=== PATIENT | male | born 1945 | race African-American/Black ===

== ENCOUNTER 2016-07-04 09:05 | Outpatient (CLI) | payer MEDICARE, MEDICAID ==
[2016-07-04 11:18] LABS: Anion Gap 15 mmol/L (10-20); Glucose 105 mg/dL (83-110)
[2016-07-04 11:34] LABS: BUN (Urea Nitrogen) 15 mg/dL (8.4-25.7); Calc. Creatinine Clearance 0 mL/min (70-130); Calcium 9.6 mg/dL (7.8-10.44); Carbon Dioxide 29 mmol/L (23-31); Chloride 101 mmol/L (98-107); Estimated GFR-MDRD 87; Potassium 3.3 mmol/L (3.5-5.1); Sodium 142 mmol/L (136-145)
[2016-07-04 11:59] LABS: Bilirubin Negative (Negative); Blood, Urine Trace (Negative); Clarity Clear (Clear); Glucose, Urine (Dipstick) Negative (Negative); Leukocyte Small (Negative); Nitrite Negative (Negative); Protein, Urine (Dipstick) 30 mg/dL (Neg-Trace); pH, Urine 5.5 (5.0-9.0)
== END 2016-07-04 09:06 ==
LOC: MADLAB 09:05
PROVIDERS: ATTEND Urology
DX: N35.8 Other urethral stricture (principal)
CPT/HCPCS: 36415; 80048; 81001; 87077; 87086; 87186

== ENCOUNTER 2016-07-29 11:45 | Outpatient (CLI) | payer MEDICARE, MEDICAID ==
[2016-07-29 12:38] LABS: Bilirubin Negative (Negative); Blood, Urine Small (Negative); Clarity Clear (Clear); Glucose, Urine (Dipstick) 500 mg/dL (Negative); Leukocyte Small (Negative); Nitrite Negative (Negative); Protein, Urine (Dipstick) Trace mg/dL (Neg-Trace); Specific Gravity, Urine 1.015 (1.005-1.030); Urobilinogen 0.2 mg/dL (0.2-1.0); pH, Urine 5.5 (5.0-9.0)
[2016-07-29 12:45] LABS: Hemoglobin A1c 12.1 % (4.0-6.0)
[2016-07-29 12:46] LABS: Bacteria/HPF Rare-Few HPF (None Seen); RBC/HPF 0-3 HPF (0-3); Squamous Epithelial 0-3 HPF (0-3)
[2016-07-29 12:47] LABS: Other Microscopic Description C&S SET UP
== END 2016-07-29 11:46 | disposition home or self-care (01) ==
LOC: MADLAB 11:45
PROVIDERS: ATTEND Urology
DX: N35.9 Urethral stricture, unspecified (principal); E13.9 Other specified diabetes mellitus without complications; N47.6 Balanoposthitis
CPT/HCPCS: 36415; 81001; 83036; 87086

== ENCOUNTER 2016-08-08 08:07 | Outpatient (CLI) | payer MEDICARE, MEDICAID ==
[2016-08-08 09:20] LABS: Bilirubin Negative (Negative); Blood, Urine Small (Negative); Clarity Clear (Clear); Glucose, Urine (Dipstick) 100 mg/dL (Negative); Leukocyte Small (Negative); Nitrite Negative (Negative); Protein, Urine (Dipstick) 30 mg/dL (Neg-Trace); Urobilinogen 0.2 mg/dL (0.2-1.0)
[2016-08-08 09:27] LABS: Bacteria/HPF Rare-Few HPF (None Seen); Other Microscopic Description C&S SET UP; Squamous Epithelial 0-3 HPF (0-3)
== END 2016-08-08 08:08 ==
LOC: MADLAB 08:07
PROVIDERS: ATTEND Urology
DX: N35.9 Urethral stricture, unspecified (principal); R35.0 Frequency of micturition
CPT/HCPCS: 36415; 81001; 87086

== ENCOUNTER 2016-08-30 15:54 | Outpatient (CLI) | payer MEDICARE, MEDICAID ==
[2016-08-30 16:16] LABS: Hemoglobin A1c 12.8 % (4.0-6.0)
[2016-08-30 16:35] LABS: ALT (SGPT) 13 U/L (0-55); AST (SGOT) 11 U/L (5-34); Albumin 3.8 g/dL (3.4-4.8); Alkaline Phosphatase 143 U/L (40-150); Anion Gap 16 mmol/L (10-20); BUN (Urea Nitrogen) 17 mg/dL (8.4-25.7); Bilirubin, Total 0.5 mg/dL (0.2-1.2); Calc. Creatinine Clearance 0 mL/min (70-130); Calcium 9.5 mg/dL (7.8-10.44); Carbon Dioxide 26 mmol/L (23-31); Chloride 98 mmol/L (98-107); Estimated GFR-MDRD 61; Globulin 3.8 g/dL (2.4-3.5); Glucose 400 mg/dL (83-110); Potassium 3.9 mmol/L (3.5-5.1); Protein, Total 7.6 g/dL (5.8-8.1); Sodium 136 mmol/L (136-145)
== END 2016-08-30 15:55 | disposition home or self-care (01) ==
LOC: MADLAB 15:54
PROVIDERS: ATTEND Family Medicine
DX: I10 Essential (primary) hypertension (principal)
CPT/HCPCS: 36415; 80053; 83036

== ENCOUNTER 2016-09-19 11:25 | Outpatient (CLI) | payer MEDICAID, MEDICARE ==
[2016-09-19 12:02] LABS: Bilirubin Negative (Negative); Blood, Urine Negative (Negative); Clarity Clear (Clear); Glucose, Urine (Dipstick) Negative (Negative); Leukocyte Trace (Negative); Nitrite Negative (Negative); Protein, Urine (Dipstick) Trace mg/dL (Neg-Trace)
[2016-09-19 12:11] LABS: Bacteria/HPF None Seen HPF (None Seen); Other Microscopic Description C&S SET UP; RBC/HPF 0-3 HPF (0-3); Squamous Epithelial 0-3 HPF (0-3)
== END 2016-09-19 11:26 ==
LOC: MADLAB 11:25
PROVIDERS: ATTEND Urology
DX: N35.9 Urethral stricture, unspecified (principal); N35.8 Other urethral stricture; E13.9 Other specified diabetes mellitus without complications; N47.6 Balanoposthitis; R31.9 Hematuria, unspecified
CPT/HCPCS: 36415; 81001; 87086

== ENCOUNTER 2016-11-24 07:02 | Outpatient (CLI) | payer MEDICARE ==
[2016-11-24 07:47] LABS: Hemoglobin A1c 9.5 % (4.0-6.0)
[2016-11-24 07:55] LABS: ALT (SGPT) 13 U/L (8-55); AST (SGOT) 13 U/L (5-34); Albumin 3.9 g/dL (3.4-4.8); Alkaline Phosphatase 101 U/L (40-150); Anion Gap 16 mmol/L (10-20); BUN (Urea Nitrogen) 17 mg/dL (8.4-25.7); Bilirubin, Total 0.7 mg/dL (0.2-1.2); Calc. Creatinine Clearance 0 mL/min (70-130); Calcium 9.1 mg/dL (7.8-10.44); Carbon Dioxide 25 mmol/L (23-31); Cardiac Risk 3.3 (Less than 4.5); Chloride 106 mmol/L (98-107); Cholesterol 190 mg/dl (< 200 Desired); Estimated GFR-MDRD 73; Globulin 3.7 g/dL (2.4-3.5); Glucose 61 mg/dL (83-110); HDL Cholesterol 58 mg/dL (>60 Neg Risk); LDL Cholesterol, Calculated 110 mg/dL; Potassium 3.5 mmol/L (3.5-5.1); Protein, Total 7.6 g/dL (5.8-8.1); Sodium 143 mmol/L (136-145); Triglycerides 111 mg/dL (Less than 150)
[2016-11-24 08:12] LABS: #Basophils 0.2 thou/uL (0.0-0.2); #Eosinphils 0.1 thou/uL (0.0-0.7); #Lymphocytes 2.3 thou/uL (1.20-3.40); #Monocytes 0.7 thou/uL (0.11-0.59); #Neutrophils 4.7 thou/uL (1.40-6.50); %Basophils 2.3 % (0.0-1.0); %Eosinophils 1.3 % (0.0-10.0); %Lymphocytes 28.7 % (21.0-51.0); %Monocytes 8.7 % (0.0-10.0); Hemoglobin 14.9 g/dL (14.0-18.0); Mean Corpuscular HGB CONC 33.2 g/dL (32.0-36.0); Mean Corpuscular Hemoglobin 29.9 pg (27.0-31.0); Mean Corpuscular Volume 90.2 fl (80.0-94.0); Platelet Count 208 thou/uL (130-400); RBC Distribution Width 14.4 % (11.5-14.5); Red Blood Cell (RBC) Count 4.97 mill/uL (4.70-6.10); Thyroid Stimulating Hormone 1.1671 uIU/mL (0.35-4.94)
[2016-11-24 17:13] LABS: Iron 54 ug/dL (65-175)
[2016-11-24 17:29] LABS: Creatinine, Urine 76.65 mg/dL (63-166); Microalbumin Urine 3.2 mg/dL (0.5-50.0); Microalbumin/Creat Ratio 41.7 mg/g (Less than 30)
[2016-11-24 17:33] LABS: Ferritin 174.83 ng/mL (22-322)
[2016-11-24 17:45] LABS: Folate (Folic Acid) 10.4 ng/mL (7.0-31.4)
== END 2016-11-24 07:03 ==
LOC: MADLABBHPM 07:02
PROVIDERS: ATTEND Family Medicine
DX: E11.65 Type 2 diabetes mellitus with hyperglycemia (principal); D64.9 Anemia, unspecified
CPT/HCPCS: 36415; 80053; 80061; 82043; 82607; 82728; 82746; 83036; 83540; 84443; 85025

== ENCOUNTER 2016-12-07 10:18 | Outpatient (CLI) | payer MEDICAID, MEDICARE ==
--- NOTE | 2016-12-07 13:24 | CT ---
CT LUMBAR SPINE WITHOUT IV CONTRAST: Date: 12-07-16 History: Sacroiliac pain. Spinal stenosis. Patient has had low back pain on and off for a while. Technique: Contiguous axial CT images are obtained through the lumbar spine from the T9-10 level to the upper sacrum. Sagittal and coronal reformatted images are provided. FINDINGS: The appendix is normal in caliber. Urinary bladder is decompressed. Vascular calcifications seen in the abdominal aorta and iliac arteries. Degenerative changes are seen in the lumbar spine. Vertebral body heights are within normal limits. There is no fracture or subluxation involving the lumbar spine. Multilevel osteophytes are present. 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 T12-L1: There is a broad based disc osteophyte which results in mild right and mild to moderate left sided neural foraminal narrowing. There is only mild effacement of the ventral subarachnoid space. L1-2: There is a mild broad based disc osteophyte complex in combination with congenitally short ped icles results in generalized mild narrowing of the central spinal canal. There is mild to moderate b ilateral neural foraminal narrowing. L2-3: There is broad based disc osteophyte complex. This results in mild to moderate narrowing of th e central spinal canal. There is mild to moderate bilateral neural foraminal narrowing present. L3-4: There is a broad based disc osteophyte formation with facet hypertrophic changes and ligament thickening. There is moderate to severe narrowing of the central spinal canal as well as narrowing o f the lateral recesses at this level. There is moderate to severe bilateral neural foraminal narrowi ng. L4-5: There is a broad based disc osteophyte complex with facet hypertrophic changes and ligamentous thickening. There is moderate to severe narrowing of the central spinal canal. There is moderate to severe bilateral neural foraminal narrowing. L5-S1: There is a mild broad based disc osteophyte complex without narrowing of the central spinal c anal. There is interval encroachment on the right neural foramen. The left neural foramen appears pa tent. 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 There is moderate to severe narrowing of the central spinal canal at the L3- 4 and L4-5 levels. Varying degrees of neural foraminal narrowing due to broad based disc osteophyte complexes at multiple levels. POS: STEFANI
== END 2016-12-07 10:19 | disposition home or self-care (01) ==
LOC: MERGE 10:18 → MADCT 10:18
PROVIDERS: ATTEND Family Medicine
DX: M48.08 Spinal stenosis, sacral and sacrococcygeal region (principal); M53.3 Sacrococcygeal disorders, not elsewhere classified; M47.816 Spondylosis without myelopathy or radiculopathy, lumbar region; M48.06 Spinal stenosis, lumbar region
CPT/HCPCS: 72131

== ENCOUNTER 2017-02-28 16:26 | Outpatient (CLI) | payer MEDICARE, MEDICAID ==
[2017-02-28 17:08] LABS: Hemoglobin A1c 6.7 % (4.0-6.0)
[2017-02-28 17:30] LABS: #Basophils 0.1 thou/uL (0.0-0.2); #Eosinphils 0.1 thou/uL (0.0-0.7); #Lymphocytes 3.2 thou/uL (1.20-3.40); #Monocytes 0.7 thou/uL (0.11-0.59); %Basophils 1.5 % (0.0-1.0); %Eosinophils 1.5 % (0.0-10.0); %Monocytes 7.4 % (0.0-10.0); %Neutrophils 54.5 % (42.0-75.0); Hemoglobin 14.8 g/dL (14.0-18.0); Mean Corpuscular HGB CONC 30.4 g/dL (32.0-36.0); Mean Corpuscular Hemoglobin 27.5 pg (27.0-31.0); Mean Corpuscular Volume 90.2 fl (80.0-94.0); Platelet Count 223 thou/uL (130-400); RBC Distribution Width 14.7 % (11.5-14.5); Red Blood Cell (RBC) Count 5.39 mill/uL (4.70-6.10); White Blood Cell (WBC) Count 9.2 thou/uL (4.8-10.8)
[2017-02-28 17:40] LABS: ALT (SGPT) 21 U/L (8-55); AST (SGOT) 18 U/L (5-34); Alkaline Phosphatase 100 U/L (40-150); Anion Gap 14 mmol/L (10-20); BUN (Urea Nitrogen) 19 mg/dL (8.4-25.7); Bilirubin, Total 0.8 mg/dL (0.2-1.2); Calc. Creatinine Clearance 0 mL/min (70-130); Calcium 9.4 mg/dL (7.8-10.44); Carbon Dioxide 28 mmol/L (23-31); Chloride 102 mmol/L (98-107); Estimated GFR-MDRD 61; Globulin 4.3 g/dL (2.4-3.5); Glucose 108 mg/dL (83-110); Potassium 3.6 mmol/L (3.5-5.1); Protein, Total 8.3 g/dL (5.8-8.1); Sodium 140 mmol/L (136-145)
[2017-03-01 17:09] LABS: Iron 55 ug/dL (65-175)
== END 2017-02-28 16:27 | disposition home or self-care (01) ==
LOC: MADLABBHPM 16:26
PROVIDERS: ATTEND Family Medicine
DX: E61.1 Iron deficiency (principal); N18.2 Chronic kidney disease, stage 2 (mild)
CPT/HCPCS: 36415; 80053; 82728; 83036; 83540; 85025

== ENCOUNTER 2017-06-01 08:25 | Outpatient (CLI) | payer MEDICAID, MEDICARE ==
[2017-06-01] MEDS ORDERED: Iopamidol 370 76% 100 ML VIAL ONE (09:21)
--- NOTE | 2017-06-01 11:20 | CT ---
CT ABDOMEN AND PELVIS WITH CONTRAST: Multiple axial tomograms were obtained through the abdomen and pelvis with IV enhancement. HISTORY: Abdominal pain and abdominal distention. FINDINGS: Lung bases are clear. The liver, spleen, and pancreas appear unremarkable. Adrenal glands and kidneys unremarkable. No hy dronephrosis. Stomach and duodenum unremarkable. Small bowel loops appear normal. Appendix appears normal. Colon is unremarkable with stool throughout the colon. The left colon is n ondistended. Colonic mucosal lesions are not excluded by CT. Aorta is normal caliber. No adenopathy. The urinary bladder is mildly distended. There is a questi on of urinary bladder thickening. There are prominent prostatic calcifications seen and the prostate is mildly enlarged. No osseous abnormality identified. IMPRESSION: 1. Question urinary bladder thickening. Mild prostatic hypertrophy with prominent prostatic calcifi cation. 2. No evidence of acute process identified. POS: STEFANI
== END 2017-06-01 08:26 | disposition home or self-care (01) ==
LOC: MADCT 08:25
PROVIDERS: ATTEND Family Medicine
DX: R14.0 Abdominal distension (gaseous) (principal); N40.0 Benign prostatic hyperplasia without lower urinary tract symptoms
CPT/HCPCS: 36415; 74177; 82565

== ENCOUNTER 2017-12-06 15:30 | Outpatient (CLI) | payer MEDICARE, MEDICAID ==
--- NOTE | 2017-12-06 16:20 | RAD ---
PA AND LATERAL CHEST: 12/06/17 HISTORY: Persistent cough. COMPARISON: 09/06/17 study. Heart size is slightly enlarged with postop sternotomy change. The lungs are clear of infiltrates. No signs of failure. IMPRESSION: Minimal cardiomegaly. POS: MAGDALENA
== END 2017-12-06 15:31 | disposition home or self-care (01) ==
LOC: MADRAD 15:30
PROVIDERS: ATTEND Family Medicine
DX: R05 Cough (principal); I51.7 Cardiomegaly
CPT/HCPCS: 71046

== ENCOUNTER 2018-04-20 20:59 | Emergency (ER) | payer MEDICARE, MEDICAID ==
[2018-04-20] MEDS ORDERED: Ibuprofen 800 MG TAB ONE (21:57)
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
== END 2018-04-20 22:07 | disposition home or self-care (01) ==
LOC: MADERS 20:59
DX: I49.3 Ventricular premature depolarization (principal); I10 Essential (primary) hypertension; E78.5 Hyperlipidemia, unspecified; E11.9 Type 2 diabetes mellitus without complications; W22.10XA Striking against or struck by unspecified automobile airbag, initial encounter; V43.52XA Car driver injured in collision with other type car in traffic accident, initial encounter
CPT/HCPCS: 70450; 93005

== ENCOUNTER 2019-07-16 08:47 | Outpatient (CLI) | payer MEDICARE, OTHER ==
[2019-07-16 09:06] LABS: #Basophils 0.1 thou/uL (0.0-0.2); #Eosinphils 0.2 thou/uL (0.0-0.7); #Lymphocytes 2.7 thou/uL (1.20-3.40); #Monocytes 0.8 thou/uL (0.11-0.59); #Neutrophils 4.9 thou/uL (1.40-6.50); %Basophils 1.2 % (0.0-1.0); %Eosinophils 1.7 % (0.0-10.0); %Lymphocytes 30.8 % (21.0-51.0); %Monocytes 9.3 % (0.0-10.0); %Neutrophils 56.9 % (42.0-75.0); Hemoglobin 14.7 g/dL (14.0-18.0); Mean Corpuscular HGB CONC 28.7 g/dL (32.0-36.0); Mean Corpuscular Hemoglobin 25.5 pg (27.0-31.0); Mean Corpuscular Volume 88.8 fL (78.0-98.0); Mean Platelet Volume 9.2 fL (7.4-10.4); Platelet Count 213 thou/uL (130-400); RBC Distribution Width 14.6 % (11.5-14.5); Red Blood Cell (RBC) Count 5.75 mill/uL (4.70-6.10); White Blood Cell (WBC) Count 8.6 thou/uL (4.8-10.8)
[2019-07-16 09:20] LABS: ALT (SGPT) 12 U/L (8-55); AST (SGOT) 11 U/L (5-34); Albumin 3.9 g/dL (3.4-4.8); Alkaline Phosphatase 137 U/L (40-110); Anion Gap 14 mmol/L (10-20); BUN (Urea Nitrogen) 17 mg/dL (8.4-25.7); Bilirubin, Total 1.4 mg/dL (0.2-1.2); Calc. Creatinine Clearance 0 mL/min (70-130); Calcium 9.1 mg/dL (7.8-10.44); Carbon Dioxide 25 mmol/L (23-31); Cardiac Risk 2.8 (Less than 4.5); Chloride 105 mmol/L (98-107); Cholesterol 162 mg/dl (< 200 Desired); Estimated GFR-MDRD 51; Globulin 3.7 g/dL (2.4-3.5); Glucose 119 mg/dL (83-110); HDL Cholesterol 58 mg/dL (>60 Neg Risk); LDL Cholesterol, Calculated 83 mg/dL; Potassium 4.2 mmol/L (3.5-5.1); Protein, Total 7.6 g/dL (5.8-8.1); Sodium 140 mmol/L (136-145); Triglycerides 105 mg/dL (Less than 150)
[2019-07-16 09:25] LABS: Anisocytosis SLIGHT = 6-15 cells (100X) (0-5/hpf); MDiff Complete? YES; Platelet Morphology Comment Appears Adequate
[2019-07-16 17:34] LABS: Hemoglobin A1c 8.5 % (4.0-6.0)
== END 2019-07-16 08:48 | disposition home or self-care (01) ==
LOC: MADLABBHPM 08:47
PROVIDERS: ATTEND Family Medicine
DX: I25.10 Atherosclerotic heart disease of native coronary artery without angina pectoris (principal); E11.51 Type 2 diabetes mellitus with diabetic peripheral angiopathy without gangrene; I12.9 Hypertensive chronic kidney disease with stage 1 through stage 4 chronic kidney disease, or unspecified chronic kidney disease; E11.22 Type 2 diabetes mellitus with diabetic chronic kidney disease; N18.9 Chronic kidney disease, unspecified
CPT/HCPCS: 80053; 80061; 83036; 84443; 85025

== ENCOUNTER 2019-10-23 12:48 | Outpatient (CLI) | payer MEDICARE, OTHER ==
[2019-10-23 13:20] LABS: ALT (SGPT) 17 U/L (8-55); AST (SGOT) 12 U/L (5-34); Albumin 3.9 g/dL (3.4-4.8); Alkaline Phosphatase 135 U/L (40-110); Anion Gap 19 mmol/L (10-20); BUN (Urea Nitrogen) 20 mg/dL (8.4-25.7); Calc. Creatinine Clearance 0 mL/min (70-130); Calcium 8.4 mg/dL (7.8-10.44); Carbon Dioxide 23 mmol/L (23-31); Chloride 104 mmol/L (98-107); Estimated GFR-MDRD 54; Globulin 3.6 g/dL (2.4-3.5); Glucose 165 mg/dL (83-110); Potassium 4.1 mmol/L (3.5-5.1); Protein, Total 7.5 g/dL (5.8-8.1); Sodium 142 mmol/L (136-145)
== END 2019-10-23 12:49 | disposition home or self-care (01) ==
LOC: MADLABBHPM 12:48
PROVIDERS: ATTEND Family Medicine
DX: I25.10 Atherosclerotic heart disease of native coronary artery without angina pectoris (principal)
CPT/HCPCS: 80053

== ENCOUNTER 2019-12-29 19:32 | Emergency (ER) | payer MEDICARE, OTHER, MEDICAID ==
[~2019-12-29 19:32] MED LIST: Dextrose 5 % And 0.9 % NaCl 1000 ml Bag ONE
[2019-12-29 20:20] LABS: Hemoglobin 14.6 g/dL (14.0-18.0); Mean Corpuscular HGB CONC 29.1 g/dL (32.0-36.0); Mean Corpuscular Volume 89.3 fL (78.0-98.0); Mean Platelet Volume 8.5 fL (7.4-10.4); Platelet Count 255 thou/uL (130-400); RBC Distribution Width 15.7 % (11.5-14.5); Red Blood Cell (RBC) Count 5.63 mill/uL (4.70-6.10); White Blood Cell (WBC) Count 6.9 thou/uL (4.8-10.8)
[2019-12-29 20:29] LABS: Bilirubin Negative (Negative); Blood, Urine Trace (Negative); Clarity Clear (Clear); Glucose, Urine (Dipstick) Negative (Negative); Ketone, Urine Negative (Negative); Leukocyte Small (Negative); Nitrite Negative (Negative); Protein, Urine (Dipstick) 30 mg/dL (Neg-Trace); Urobilinogen 0.2 mg/dL (Less than 2)
[2019-12-29 20:35] LABS: Bacteria/HPF Rare-Few HPF (None Seen); RBC/HPF 0-3 HPF (0-3); Sperm/HPF 1+ HPF (None Seen); Squamous Epithelial 0-3 HPF (0-3)
[2019-12-29 20:37] LABS: ALT (SGPT) 12 U/L (8-55); AST (SGOT) 11 U/L (5-34); Albumin 3.8 g/dL (3.4-4.8); Alcohol Less than 10 mg/dL (Less than 10); Alkaline Phosphatase 108 U/L (40-110); Anion Gap 16 mmol/L (10-20); BUN (Urea Nitrogen) 12 mg/dL (8.4-25.7); Bilirubin, Total 0.8 mg/dL (0.2-1.2); Calc. Creatinine Clearance 0 mL/min (70-130); Calcium 8.7 mg/dL (7.8-10.44); Carbon Dioxide 25 mmol/L (23-31); Chloride 107 mmol/L (98-107); Estimated GFR-MDRD 67; Globulin 3.9 g/dL (2.4-3.5); Glucose 74 mg/dL (83-110); Protein, Total 7.7 g/dL (5.8-8.1); Sodium 145 mmol/L (136-145)
[2019-12-29 20:42] LABS: Band 8 % (5-11); Eosinophils 2 % (0-10); Hypochromia SLIGHT = 6-15 cells (100X) (0-5/hpf); Lymphocytes 23 % (21-51); MDiff Complete? YES; Metamyelocyte 3 % (0-0); Monocytes 9 % (0-10); Myelocyte 2 % (0-0); Neutrophil 53 % (42-75); Platelet Morphology Comment Appears Adequate; Schistocytes SLIGHT = 2-5 cells (100X) (0-1/hpf); Target Cells SLIGHT = 2-5 cells (100X) (0-1/hpf)
[2019-12-29 20:44] LABS: Potassium 2.9 mmol/L (3.5-5.1)
[2019-12-29 20:45] LABS: Amphetamine Not Detected (NotDetected); Barbiturates Screen Not Detected (NotDetected); Benzodiazepine Screen Not Detected (NotDetected); Cocaine Metabolite Screen Not Detected (NotDetected); Medtox Control Line Valid? VALID (VALID); Methadone Not Detected (NotDetected); Methamphetamine Not Detected (NotDetected); Opiate Screen Detected (NotDetected); Oxycodone Screen Not Detected (NotDetected); Phencyclidine (PCP) Not Detected (NotDetected); THC/Cannabinoid Screen Not Detected (NotDetected); Tricyclic Screen Not Detected (NotDetected)
[2019-12-29] MEDS ORDERED: Potassium Chloride 20 MEQ TAB ONE (21:04)
[2019-12-30 11:43] LABS: Hemoglobin A1c 6.7 % (4.0-6.0)
== END 2019-12-29 23:35 | disposition home or self-care (01) ==
LOC: MADERS 19:32
DX: E11.649 Type 2 diabetes mellitus with hypoglycemia without coma (principal); E78.5 Hyperlipidemia, unspecified; I10 Essential (primary) hypertension; E87.6 Hypokalemia; K02.9 Dental caries, unspecified
CPT/HCPCS: 36416; 80053; 80306; 80307; 81003; 81015; 83036; 85025; J7042